=== PATIENT | female | born 1990 | race Caucasian/White ===

== ENCOUNTER 2018-05-05 08:59 | Emergency (ER) | payer OTHER ==
[2018-05-05] MEDS ORDERED: NS 1,000 ML IV ONE (09:10)
[2018-05-05] MEDS ORDERED: KETOROLAC 30 MG/1 ML SDV IVP ONE (09:21)
[2018-05-05] MEDS ORDERED: ONDANSETRON 4 MG/2 ML VIAL IVP ONE (09:21)
[2018-05-05 09:25] LABS: PLATELET COUNT 278 10^3/uL (150-400)
--- NOTE | 2018-05-05 09:50 | EDPHY ---
HPI/HX/ROS/PE/MDM Narrative: CHIEF COMPLAINT: Abdominal pain, nausea, vomiting HPI: This patient is a healthy 27 year old female complaining of abdominal pain, nausea, and vomiting. She woke this morning with a sharp pain in her right side. After 10 minutes, she developed nausea and vomited. She endorses increased pain with deep inspiration. She continued to feel worse over the next hour and her roommates took her to urgent care. Urgent Care providers referred her to the ED for further evaluation. She denies fever. No diarrhea, hematemesis , hematochezia, or melena. No urinary complaints including dysuria, hematuria, or abnormal odor. Her normal menstrual period is currently ongoing. REVIEW OF SYSTEMS: A comprehensive 10 system review of systems is otherwise negative aside from elements mentioned in the history of present illness and medical decision making. PMH: T&A. SOCIAL HISTORY: Employed. Lives in [place]. Does not abuse tobacco, drugs, or alcohol. PHYSICAL EXAM: General:Patient is alert, in no acute distress. ENT:Eyes are normal to inspection. ENT inspection normal. Neck: Normal inspection. Full range of motion. Respiratory:No respiratory distress. Breath sounds normal bilaterally. Cardiovascular: Regular rate and rhythm. Strong peripheral pulses. Normal cap refill. Abdomen: Moderate to severe RLQ tenderness. There are no peritoneal signs. There are normal bowel sounds. Back: Normal to inspection. No tenderness to palpation. Skin: Normal color. No rash. Warm and dry. Extremities: Normal appearance. Full range of motion. Neuro: Oriented x3. Normal motor function. Normal sensory function. ED Course: 27 y/o female presents with sharp right-sided abdominal pain. She has moderate to severe RLQ tenderness on exam. Plan for labs including CBC, chemistries, BHCG , UA. Plan to administer 4mg IV Zofran, 30mg IV Toradol, and 1L IV NS for symptom relief. Reviewed laboratory studies. WBC elevated at 11,000. UA positive for 3+ blood. Of note, patient is currently on her menstrual period. 10:00 Reassessed patient. Plan for CT abdomen/pelvis for further evaluation. 11:00 Patient noted to develop hives following IV contrast administration. IV benadryl given with resolution of symptoms. 11:21 Spoke with on-call radiologist. CT abdomen/pelvis negative for acute processes including appendicitis, kidney stone, ovarian cyst. Reassessed patient. Discussed imaging results. Discussed options for further evaluation including US. She declines further testing or imaging studies at this time and would like to be discharged home. Plan to d/c home in good condition. Follow up and return precautions discussed. The patient is comfortable with this plan. - Data Points Imaging: Discussed imaging studies w/ toe lining closer Radiologist Laboratory Results: Laboratory Results 05/05/18 09:15 05/05/18 09:15 05/05/18 05/05/18 05/05/18 09:15 09:15 09:15 WBC 11.09 10^3/uL H 10^3/uL (3.80-9.50) RBC 5.01 10^6/uL 10^6/uL (4.18-5.33) Hgb 15.0 g/dL g/dL (12.6-16.3) Hct 43.6 % % (38.0-47.0) MCV 87.0 fL fL (81.5-99.8) MCH 29.9 pg pg (27.9-34.1) MCHC 34.4 g/dL g/dL (32.4-36.7) RDW 12.1 % % (11.5-15.2) Plt Count 278 10^3/uL 10^3/uL (150-400) MPV 9.1 fL fL (8.7-11.7) Neut % (Auto) 78.3 % H % (39.3-74.2) Lymph % (Auto) 15.0 % % (15.0-45.0) [place] % (Auto) 4.7 % % (4.5-13.0) Eos % (Auto) 1.3 % % (0.6-7.6) Baso % (Auto) 0.4 % % (0.3-1.7) Nucleat RBC Rel Count 0.0 % % (0.0-0.2) Absolute Neuts (auto) 8.70 10^3/uL H 10^3/uL (1.70-6.50) Absolute Lymphs (auto) 1.66 10^3/uL 10^3/uL (1.00-3.00) Absolute Monos (auto) 0.52 10^3/uL 10^3/uL (0.30-0.80) Absolute Eos (auto) 0.14 10^3/uL 10^3/uL (0.03-0.40) Absolute Basos (auto) 0.04 10^3/uL 10^3/uL (0.02-0.10) Absolute Nucleated RBC 0.00 10^3/uL 10^3/uL (0-0.01) Immature Gran % 0.3 % % (0.0-1.1) Immature Gran # 0.03 10^3/uL 10^3/uL (0.00-0.10) Sodium 143 mEq/L mEq/L (135-145) Potassium 4.2 mEq/L mEq/L (3.3-5.0) Chloride 108 mEq/L mEq/L (97-110) Carbon Dioxide 22 mEq/l mEq/l (22-31) Anion Gap 13 mEq/L mEq/L (6-14) BUN 9 mg/dL mg/dL (7-23) Creatinine 0.7 mg/dL mg/dL (0.6-1.0) Estimated GFR > 60 Glucose 96 mg/dL mg/dL (70-100) Calcium 9.8 mg/dL mg/dL (8.5-10.4) Beta HCG, Qual NEGATIVE Urine Color Urine Appearance Urine pH Ur Specific Loop Urine Protein Urine Ketones Urine Blood Urine Nitrate Urine Bilirubin Urine Urobilinogen Ur Leukocyte Esterase Urine RBC Urine WBC Ur Epithelial Cells Urine Mucus Urine Glucose 05/05/18 09:10 WBC RBC Hgb Hct MCV MCH MCHC RDW Plt Count MPV Neut % (Auto) Lymph % (Auto) [place] % (Auto) Eos % (Auto) Baso % (Auto) Nucleat RBC Rel Count Absolute Neuts (auto) Absolute Lymphs (auto) Absolute Monos (auto) Absolute Eos (auto) Absolute Basos (auto) Absolute Nucleated RBC Immature Gran % Immature Gran # Sodium Potassium Chloride Carbon Dioxide Anion Gap BUN Creatinine Estimated GFR Glucose Calcium Beta HCG, Qual Urine Color YELLOW Urine Appearance MODERATELY TURBID Urine pH 5.0 (5.0-7.5) Ur Specific Loop 1.023 (1.002-1.030) Urine Protein 1+ H (NEGATIVE) Urine Ketones NEGATIVE (NEGATIVE) Urine Blood 3+ H (NEGATIVE) Urine Nitrate NEGATIVE (NEGATIVE) Urine Bilirubin NEGATIVE (NEGATIVE) Urine Urobilinogen NEGATIVE EU EU (0.2-1.0) Ur Leukocyte Esterase NEGATIVE (NEGATIVE) Urine RBC 50-182 /hpf H /hpf (0-3) Urine WBC 5-10 /hpf H /hpf (0-3) Ur Epithelial Cells 1+ /lpf /lpf (NONE-1+) Urine Mucus 4+ /lpf H /lpf (NONE-1+) Urine Glucose NEGATIVE (NEGATIVE) Medications Given: Discontinued Medications Diphenhydramine HCl (Benadryl Injection) 50 mg IVP EDNOW ONE Stop: 05/05/18 10:59 Last Admin: 05/05/18 11:02 Dose: 50 mg Sodium Chloride (Ns) 1,000 mls @ 0 mls/hr IV EDNOW ONE; Wide Open PRN Reason: Protocol Stop: 05/05/18 09:11 Last Admin: 05/05/18 09:25 Dose: 1,000 mls Ketorolac Tromethamine (Toradol) 30 mg IVP EDNOW ONE Stop: 05/05/18 09:22 Last Admin: 05/05/18 09:25 Dose: 30 mg Ondansetron HCl (Zofran) 4 mg IVP EDNOW ONE Stop: 05/05/18 09:22 Last Admin: 05/05/18 09:25 Dose: 4 mg General Time Seen by Provider: 05/05/18 09:08 Initial Vital Signs: Initial Vital Signs Temperature (C) 36.8 C 05/05/18 09:02 Heart Rate 72 05/05/18 09:02 Respiratory Rate 17 05/05/18 09:02 Blood Pressure 156/84 H 05/05/18 09:02 O2 Sat (%) 97 05/05/18 09:02 O2 Delivery Mode Room Air Allergies/Adverse Reactions: No Known Allergies Allergy (Unverified 05/05/18 09:02) Home Medications: Medication Instructions Recorded NK [No Known Home Meds] 05/05/18 Departure - Departure Disposition: Home, Routine, Self-Care Clinical Impression: Abdominal pain, Nausea & vomiting Condition: Good Instructions: Acute Nausea and Vomiting (ED), Acute Abdominal Pain (ED) Additional Instructions: Follow up with your primary care provider in 2-3 days. Return to the emergency department if you develop fever, increased or changing abdominal pain, uncontrollable vomiting or diarrhea, blood in your vomit or stool, or other worsening of condition. Referrals: Sujit Lopez MD [[facility] [place]] - As per Instructions Report Scribed for: Bebeto Dos Santos Report Scribed by: Charlette Jauregui Date of Report: 05/05/18 Time of Report: 11:12 Physician Review and Approval Statement: Portions of this note were transcribed by an ED scribe. I personally performed the history, physical exam, and medical decision making; and confirm the accuracy of the information in the transcribed note.
[2018-05-05] MEDS ORDERED: IOPAMIDOL (ISOVUE-300) 100 ML BTL ONE (10:26)
[2018-05-05 11:34] VITALS: BP 100/50
== END 2018-05-05 11:34 | disposition home or self-care (01) ==
DX: R10.9 Unspecified abdominal pain (principal); R11.2 Nausea with vomiting, unspecified; E86.9 Volume depletion, unspecified
CPT/HCPCS: 96374; J1200; J1885; J2405; Q9967